=== PATIENT | male | born 2000 | race Caucasian/White ===

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

== ENCOUNTER 2022-09-27 21:07 | Emergency (ER) | payer OTHER, BC ==
[2022-09-27 21:49] VITALS: TEMP 98.1
[2022-09-27] MEDS ORDERED: DIPH,PERTUS(ACELL)TETVAC-LF 0.5 ML VIAL IM ONE (22:24)
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
[2022-09-28] MEDS ORDERED: HYDROcodone/APAP 5-325MG 1 EACH TAB PO STA (00:39)
[2022-09-28] MEDS ORDERED: ACET/COD 300 MG/30 MG STARTER PACK 6 TAB BTL PO STA (00:40)
[2022-09-28 01:06] VITALS: BP 130/71; PULSE 56; RESP 16
== END 2022-09-28 01:08 | disposition home or self-care (01) ==
LOC: EC 21:07
DX: S80.02XA Contusion of left knee, initial encounter (principal); S00.83XA Contusion of other part of head, initial encounter; Z86.59 Personal history of other mental and behavioral disorders; V89.2XXA Person injured in unspecified motor-vehicle accident, traffic, initial encounter; Y92.411 Interstate highway as the place of occurrence of the external cause
CPT/HCPCS: 70450; 70486; 71045; 72125; 99284

== ENCOUNTER 2024-03-01 10:31 | Observation (INO) | payer BC ==
--- NOTE | 2024-03-01 11:40 | ED ---
Abdominal Pain HPI - General Source: patient, RN notes reviewed Mode of arrival: ambulatory Limitations: no limitations - History of Present Illness MD Complaint: abdominal pain <Wiley Miller - Last Filed: 03/01/24 11:38> - General Source: patient, RN notes reviewed, old records reviewed <Kartik Cruz - Last Filed: 03/01/24 16:01> - General Chief Complaint: Abdominal Pain Stated Complaint: ABD PAIN Time Seen by Provider: 03/01/24 10:45 - History of Present Illness Initial Comments: Quick note: This is a 23-year-old male sent by to rule out appendicitis presenting with RLQ abdominal pain. Patient states pain is intermittent with associated nausea/vomiting/diarrhea. Denies radiating or migrating pain. Endorses relief when supine and burping and worsened when laying on affected side. Endorses decreased oral intake due to nausea and subjective fever. Endorses use of omeprazole with minimal relief. (Wiley Miller) Patient is a 23-year-old male who presents emergency department from urgent care to rule out appendicitis. Complaining of right lower quadrant abdominal pain with persistent nausea and vomiting and some mild diarrhea since Wednesday. Is currently Wednesday. Presented to urgent care originally however they sent him here for CT imaging. Patient denies any other abdominal pain. No history of abdominal surgeries. No other significant complaints at this time. Denies fevers. Denies urinary complaints. States pain does not radiate. Presents for further evaluation. Originally seen as a quick note. I evaluated patient when he is placed in room 11. (Kartik Cruz) - Related Data Home Medications Medication Instructions Recorded Confirmed No Known Home Medications 03/01/24 03/01/24 Allergies Allergy/AdvReac Type Severity Reaction Status Date / Time No Known Allergies Allergy Verified 03/01/24 13:56 Review of Systems ROS Other: All systems not noted in ROS Statement are negative. <Wiley Miller - Last Filed: 03/01/24 11:38> ROS Other: All systems not noted in ROS Statement are negative. <Kartik Cruz - Last Filed: 03/01/24 16:01> ROS Statement: Those systems with pertinent positive or pertinent negative responses have been documented in the HPI. Review of Systems: CONST: Denies fever EYES: Denies blurry vision ENT: Denies nasal congestion C/V: Denies Chest pain RESP: Denies shortness of breath GI: Endorses abdominal pain : Denies dysuria SKIN: Denies rash. MSK: Denies joint pain. NEURO: Denies headache (Kartik Cruz) Past Medical History Past Medical History: No Reported History History of Any Multi-Drug Resistant Organisms: None Reported Past Surgical History: No Surgical Hx Reported Past Psychological History: ADD/ADHD Smoking Status: Never smoker Past Alcohol Use History: None Reported Past Drug Use History: Marijuana <Wiley Miller - Last Filed: 03/01/24 11:38> General Exam Limitations: no limitations <Wiley Miller - Last Filed: 03/01/24 11:38> <Kartik Cruz - Last Filed: 03/01/24 16:01> - General Exam Comments Initial Comments: Visual Physical Exam Vital signs reviewed General: Well-appearing, nontoxic, no acute distress. Head: Normocephalic, atraumatic Eyes: PERRLA, EOMI ENT: Airway patent Chest: Nonlabored breathing Skin: No visual rash, normal skin tone Neuro: Alert and oriented 3 Musculoskeletal: No gross abnormalities (Wiley Miller) General: Appears in mild to moderate distress secondary to abdominal pain. HEAD: Normal with no signs of head trauma. EYES: EOMI ENT: Hearing grossly intact, normal oropharynx. RESPIRATORY: Clear breath sounds bilaterally. No wheezes, rales, or rhonchi. C/V: Regular rate and rhythm. S1 and S2 auscultated. Peripheral pulses 2+ intact throughout. ABD: Soft, nondistended. Tender to palpation in the right lower quadrant. No guarding or rebound tenderness. No peritoneal signs. EXT: No obvious deformity SKIN: No rashes or lesions observed on exposed skin. NEURO: Alert and oriented x 4. (Kartik Cruz) Course Vital Signs 03/01/24 03/01/24 03/01/24 10:56 12:48 14:00 Temperature 98.0 F 98.1 F 98.3 F Pulse Rate 63 62 61 Respiratory 18 19 16 Rate Blood Pressure 118/78 136/52 135/65 O2 Sat by Pulse 98 98 97 Oximetry 03/01/24 14:41 Temperature Pulse Rate 65 Respiratory 18 Rate Blood Pressure 131/69 O2 Sat by Pulse 97 Oximetry Medical Decision Making <Wiley Miller - Last Filed: 03/01/24 11:38> - Lab Data Result diagrams: 03/01/24 11:50 03/01/24 11:50 <Kartik Cruz - Last Filed: 03/01/24 16:01> - Medical Decision Making I completed the quick note portion of this chart signed DEION Hurley (Wiley Miller) Was pt. sent in by a medical professional or institution ([facility] [place], [facility]ESS REGISTRAR, urgent care, hospital, or fpc...) When possible be specific @ -Sent by urgent care for evaluation for appendicitis. Did you speak to anyone other than the patient for history (EMS, parent, family, police, friend...)? What history was obtained from this source @ -No Did you review nursing and triage notes (agree or disagree)? Why? @ -I reviewed and agree with nursing and triage notes Were old charts reviewed (outside hosp., previous admission, EMS record, old EKG, old radiological studies, urgent care reports/EKG's, fpc records)? Report findings @ -No old charts were reviewed Differential Diagnosis (chest pain, altered mental status, abdominal pain women, abdominal pain men, vaginal bleeding, weakness, fever, dyspnea, syncope, headache, dizziness, GI bleed, back pain, seizure, CVA, palpatations, mental health, musculoskeletal)? @ -Differential Abdominal Pain Men: Appendicitis, cholecystitis, diverticulosis, ischemic bowel, pancreatitis, hepatitis, UTI, gastroenteritis, AAA, incarcerated hernia, bowel obstruction, constipation, inflammatory bowel, hepatitis, peptic ulcer disease, splenic infarction, perforated viscus, testicular torsion, this is not meant to be an all-inclusive list EKG interpreted by me (3pts min.). @ -None done X-rays interpreted by me (1pt min.). @ -None done CT interpreted by me (1pt min.). @ -CT abdomen pelvis reveals uncomplicated appendicitis. U/S interpreted by me (1pt. min.). @ -None done What testing was considered but not performed or refused? (CT, X-rays, U/S, labs)? Why? @ -None What meds were considered but not given or refused? Why? @ -None Did you discuss the management of the patient with other professionals (professionals i.e. [facility] [place], ACCESS REGISTRAR, lab, RT, psych nurse, social worker school, silver miner, teacher, international first officer, caser)? Give summary @ -Discussed with on-call surgeon, Dr. Aviles who is in agreement with plan for initiating antibiotics, IV fluids, making the patient n.p.o. Patient will be taken to the OR later this afternoon. Was smoking cessation discussed for >3mins.? @ -No Was critical care preformed (if so, how long)? @ -No Were there social determinants of health that impacted care today? How? (Homelessness, low income, unemployed, alcoholism, drug addiction, transportation, low edu. Level, literacy, decrease access to med. care, usp, rehab)? @ -No Was there de-escalation of care discussed even if they declined (Discuss DNR or withdrawal of care, Hospice)? DNR status @ -No What co-morbidities impacted this encounter? (DM, HTN, Smoking, COPD, CAD, Cancer, CVA, ARF, Chemo, Hep., AIDS, mental health diagnosis, sleep apnea, morbid obesity)? @ -None Was patient admitted / discharged? Hospital course, mention meds given and route, prescriptions, significant lab abnormalities, going to OR and other pertinent info. @ -Patient presents to the [facility] emergency department for rule out appendicitis. Workup started as a quick note. Patient administered IV fluids, analgesia medications, antiemetics, Protonix. Vitals are within acceptable limits. Laboratory studies returned remarkable for leukocytosis of 16.8. Lactic acid within normal limits. Remainder the labs relatively unremarkable. 4+ ketones i n the urine, signifying significant dehydration. CT imaging week feels acute appendicitis. Patient will be started on IV Zosyn. Made NPO. Will continue with IV fluids. I updated the patient. He will be admitted to surgery. I spoke with on-call surgeon, Dr. Ramírez who accepted the admission and will arrange for OR time this afternoon. Undiagnosed new problem with uncertain prognosis? @ -No Drug Therapy requiring intensive monitoring for toxicity (Heparin, Nitro, Insulin, Cardizem)? @ -No Were any procedures done? @ -No Diagnosis/symptom? @ -Appendicitis Acute, or Chronic, or Acute on Chronic? @ -Acute Uncomplicated (without systemic symptoms) or Complicated (systemic symptoms)? @ -Complicated Side effects of treatment? @ -No Exacerbation, Progression, or Severe Exacerbation? @ -No Poses a threat to life or bodily function? How? (Chest pain, [place], [place], pneumonia, PE, COPD, DKA, ARF, appy, cholecystitis, CVA, Diverticulitis, Homicidal, Suicidal, threat to staff... and all critical care pts) @ -Yes (Kartik Cruz) - Lab Data Lab Results 03/01/24 03/01/24 03/01/24 Range/Units 11:50 11:50 11:50 WBC 16.8 H (3.8-10.6) k/uL RBC 5.50 (4.30-5.90) m/uL Hgb 16.2 (13.0-17.5) gm/dL Hct 47.0 (39.0-53.0) % MCV 85.3 (80.0-100.0) fL MCH 29.5 (25.0-35.0) pg MCHC 34.6 (31.0-37.0) g/dL RDW 12.5 (11.5-15.5) % Plt Count 294 (150-450) k/uL MPV 8.2 Neutrophils % 86 % Lymphocytes % 7 % Monocytes % 5 % Eosinophils % 1 % Basophils % 0 % Neutrophils # 14.5 H (1.3-7.7) k/uL Lymphocytes # 1.2 (1.0-4.8) k/uL Monocytes # 0.9 (0-1.0) k/uL Eosinophils # 0.1 (0-0.7) k/uL Basophils # 0.0 (0-0.2) k/uL Sodium 141 (137-145) mmol/L Potassium 3.8 (3.5-5.1) mmol/L Chloride 98 (98-107) mmol/L Carbon Dioxide 29 (22-30) mmol/L Anion Gap 14 mmol/L BUN 14 (9-20) mg/dL Creatinine 0.91 (0.66-1.25) mg/dL Est GFR (CKD-EPI)AfAm >90 (>60 ml/min/1.73 sqM) Est GFR (CKD-EPI)NonAf >90 (>60 ml/min/1.73 sqM) Glucose 102 H (74-99) mg/dL Plasma Lactic Acid Pee (0.7-2.0) mmol/L Calcium 10.6 H (8.4-10.2) mg/dL Total Bilirubin 4.2 H (0.2-1.3) mg/dL AST 16 L (17-59) U/L ALT 11 (4-49) U/L Alkaline Phosphatase 85 (38-126) U/L Total Protein 9.3 H (6.3-8.2) g/dL Albumin 5.7 H (3.5-5.0) g/dL Amylase 48 (30-110) U/L Lipase 195 (23-300) U/L Urine Color Yellow Urine Appearance Cloudy (Clear) Urine pH 6.0 (5.0-8.0) Ur Specific [place] 1.046 H (1.001-1.035) Urine Protein 1+ H (Negative) Urine Glucose (UA) Negative (Negative) Urine Ketones 4+ H (Negative) Urine Blood Negative (Negative) Urine Nitrite Negative (Negative) Urine Bilirubin 1+ H (Negative) Urine Urobilinogen 4.0 (<2.0) mg/dL Ur Leukocyte Esterase Negative (Negative) Urine RBC <1 (0-5) /hpf Urine WBC 3 (0-5) /hpf Ur Squamous Epith Cells 2 (0-4) /hpf Urine Mucus Many H (None) /hpf 03/01/24 Range/Units 11:50 WBC (3.8-10.6) k/uL RBC (4.30-5.90) m/uL Hgb (13.0-17.5) gm/dL Hct (39.0-53.0) % MCV (80.0-100.0) fL MCH (25.0-35.0) pg MCHC (31.0-37.0) g/dL RDW (11.5-15.5) % Plt Count (150-450) k/uL MPV Neutrophils % % Lymphocytes % % Monocytes % % Eosinophils % % Basophils % % Neutrophils # (1.3-7.7) k/uL Lymphocytes # (1.0-4.8) k/uL Monocytes # (0-1.0) k/uL Eosinophils # (0-0.7) k/uL Basophils # (0-0.2) k/uL Sodium (137-145) mmol/L Potassium (3.5-5.1) mmol/L Chloride (98-107) mmol/L Carbon Dioxide (22-30) mmol/L Anion Gap mmol/L BUN (9-20) mg/dL Creatinine (0.66-1.25) mg/dL Est GFR (CKD-EPI)AfAm (>60 ml/min/1.73 sqM) Est GFR (CKD-EPI)NonAf (>60 ml/min/1.73 sqM) Glucose (74-99) mg/dL Plasma Lactic Acid Pee 1.3 (0.7-2.0) mmol/L Calcium (8.4-10.2) mg/dL Total Bilirubin (0.2-1.3) mg/dL AST (17-59) U/L ALT (4-49) U/L Alkaline Phosphatase (38-126) U/L Total Protein (6.3-8.2) g/dL Albumin (3.5-5.0) g/dL Amylase (30-110) U/L Lipase (23-300) U/L Urine Color Urine Appearance (Clear) Urine pH (5.0-8.0) Ur Specific [place] (1.001-1.035) Urine Protein (Negative) Urine Glucose (UA) (Negative) Urine Ketones (Negative) Urine Blood (Negative) Urine Nitrite (Negative) Urine Bilirubin (Negative) Urine Urobilinogen (<2.0) mg/dL Ur Leukocyte Esterase (Negative) Urine RBC (0-5) /hpf Urine WBC (0-5) /hpf Ur Squamous Epith Cells (0-4) /hpf Urine Mucus (None) /hpf Disposition <Wiley Miller - Last Filed: 03/01/24 11:38> Time of Disposition: 13:20 <Kartik Cruz - Last Filed: 03/01/24 16:01> Clinical Impression: Acute appendicitis Disposition: ADMITTED IP TO THIS HOSP Condition: Stable
[2024-03-01 12:01] LABS: Basophils % (A) 0 %; Eosinophils # (A) 0.1 k/uL (0-0.7); Eosinophils % (A) 1 %; HGB 16.2 gm/dL (13.0-17.5); Lymphocytes # (A) 1.2 k/uL (1.0-4.8); Lymphocytes % (A) 7 %; MCH 29.5 pg (25.0-35.0); MCHC 34.6 g/dL (31.0-37.0); MCV 85.3 fL (80.0-100.0); Mean Platelet Volume 8.2; Monocytes # (A) 0.9 k/uL (0-1.0); Monocytes % (A) 5 %; Neutrophils # (A) 14.5 k/uL (1.3-7.7); Neutrophils % (A) 86 %; Platelet Count 294 k/uL (150-450); RDW 12.5 % (11.5-15.5); WBC 16.8 k/uL (3.8-10.6)
[2024-03-01 12:17] LABS: ALT 11 U/L (4-49); AST 16 U/L (17-59); African American GFR (CKD) >90 (>60 ml/min/1.73 sqM); Albumin 5.7 g/dL (3.5-5.0); Alkaline Phosphatase 85 U/L (38-126); Amylase 48 U/L (30-110); Anion Gap 14 mmol/L; Blood Urea Nitrogen 14 mg/dL (9-20); Calcium 10.6 mg/dL (8.4-10.2); Carbon Dioxide 29 mmol/L (22-30); Chloride 98 mmol/L (98-107); Glucose 102 mg/dL (74-99); Lipase 195 U/L (23-300); Non-African American GFR(CKD) >90 (>60 ml/min/1.73 sqM); Potassium 3.8 mmol/L (3.5-5.1); Sodium 141 mmol/L (137-145); Total Bilirubin 4.2 mg/dL (0.2-1.3); Total Protein 9.3 g/dL (6.3-8.2)
[2024-03-01] MEDS: MAG HYDROX/AL HYDROX/SIMETH 30 ML, HYOSCYAMINE ELIXIR 10 ML, LIDOCAINE VISCOUS 2% 10 ML PO STA (12:22)
[2024-03-01] MEDS: ONDANSETRON 4 MG/2 ML VIAL IVP STA (12:23)
[2024-03-01] MEDS: PANTOPRAZOLE 40 MG/10 ML VIAL IVP STA (12:23)
[2024-03-01] MEDS: SODIUM CHLORIDE 0.9% 1,000 ML IV STA (12:23)
[2024-03-01] MEDS: KETOROLAC 15 MG/ML 1 ML VIAL IVP STA (12:31)
[2024-03-01 12:32] LABS: Appearance,Urine Cloudy (Clear); Bilirubin,Urine 1+ (Negative); Blood,Urine Negative (Negative); Color,Urine Yellow; Glucose,Urine (UA) Negative (Negative); Ketones,Urine 4+ (Negative); Leukocyte Esterase,Urine Negative (Negative); Mucus,Urine Many /hpf; Nitrite,Urine Negative (Negative); Protein,Urine 1+ (Negative); RBC,Urine <1 /hpf (0-5); Specific Gravity,Urine 1.046 (1.001-1.035); Squamous Epithelial Cell,Urine 2 /hpf (0-4); WBC,Urine 3 /hpf (0-5)
--- NOTE | 2024-03-01 13:06 | CT ---
EXAMINATION TYPE: CT abdomen pelvis w con DATE OF EXAM: 03/01/2024 12:17 PM COMPARISON: None. CLINICAL INDICATION: Male, 23 years old with history of RLQ pain, RLQ PAIN TECHNIQUE: Axial images were obtained from above the diaphragm to the pubic rami in the axial plane a t 5 mm thick sections. Reconstructed images are reviewed on the computer in the coronal plane. CONTRAST: 100 mL of Isovue 300. Study performed without Oral Contrast DLP: 713.8 mGycm, Automated exposure control for dose reduction was used. FINDINGS: Limited CT sections are obtained the lung bases. The lung bases are clear. CT ABDOMEN: Liver: Normal Spleen: Normal Pancreas: Normal Adrenal glands: The adrenal glands are normal. Gallbladder: Normal Kidneys: No masses are evident. No hydronephrosis is present. No cysts are present. Delayed images were obtained through the kidneys, which remain unremarkable. Aorta: Normal Inferior vena cava: Normal. CT PELVIS: Loops of bowel within the abdomen and pelvis are normal. Few diverticuli within the sigmoid colon. No adjacent inflammatory changes to suggest acute diverticulitis. This study is without oral contrast l imiting bowel evaluation. Appendix: The appendix measures 0.9 cm transverse which is slightly enlarged. Normal less than 0.7 cm . Some mild enhancement may be present. Clinical correlation for early acute appendicitis is recommen ded. Inflammatory changes are not identified. No abscess formation or free air is evident. Urinary bladder: Decompressed limiting evaluation Genitourinary structures: Prostate appears normal Osseous structures: No suspicious lytic or sclerotic lesions. IMPRESSION: 1. Early acute appendicitis may be present with slight prominence of the appendix. Inflammatory jordan ges, abscess formation or free air is not identified. 2. A few diverticuli are present without acute diverticulitis. 3. Abdomen pelvis CT otherwise appears unremarkable [facility], Workstation: [facility], 03/01/2024 1:03 PM
[2024-03-01] MEDS ORDERED: MORPHINE SULFATE 4 MG/ML SYRINGE IV PRN (13:26)
[2024-03-01] MEDS ORDERED: ONDANSETRON 4 MG/2 ML VIAL IVP PRN ×2 (13:26→17:29)
[2024-03-01] MEDS ORDERED: NALOXONE 0.4 MG/ML 1 ML VIAL IV PRN (13:26)
[2024-03-01] MEDS: LACTATED RINGERS 1,000 ML IV ONE ×4 (13:34→17:44)
[2024-03-01] MEDS: PIPERACILLIN-TAZOBACTAM 3.375 GM in SODIUM CHLORIDE 0.9% 100 ML IVPB STA (13:56)
[2024-03-01] MEDS: DEXAMETHASONE SOD PHOSPHATE 4 MG/ML 1 ML VIAL IVP STA (15:31)
[2024-03-01] MEDS: LIDOCAINE 1%-EPI 1:100,000 20 ML VIAL SQ ONE ×2 (15:32→17:15)
--- NOTE | 2024-03-01 15:38 | P.GSHP ---
History of Present Illness H&P Date: 03/01/24 Chief Complaint: Right lower quadrant pain Is a 23-year-old male who has 24-hour history of right lower quadrant pain. Patient was worked up in emergency room. His CAT scan is suggestive of early appendicitis. Patient has leukocytosis. Past Medical History Past Medical History: No Reported History History of Any Multi-Drug Resistant Organisms: None Reported Past Surgical History: No Surgical Hx Reported Past Psychological History: ADD/ADHD Smoking Status: Never smoker Past Alcohol Use History: None Reported Past Drug Use History: Marijuana Medications and Allergies Home Medications Medication Instructions Recorded Confirmed Type No Known Home Medications 03/01/24 03/01/24 History Allergies Allergy/AdvReac Type Severity Reaction Status Date / Time No Known Allergies Allergy Verified 03/01/24 13:56 Surgical - Exam Vital Signs Temp Pulse Resp BP Pulse Ox 98.0 F 63 18 118/78 98 03/01/24 10:56 03/01/24 10:56 03/01/24 10:56 03/01/24 10:56 03/01/24 10:56 - General well developed, well nourished, no distress - Eyes PERRL - ENT normal pinna - Neck no masses - Respiratory normal expansion - Cardiovascular Rhythm: regular - Abdomen Abdomen: soft, non tender Results - Labs 03/01/24 11:50 03/01/24 11:50 Abnormal Lab Results - Last 24 Hours (Table) 03/01/24 03/01/24 03/01/24 Range/Units 11:50 11:50 11:50 WBC 16.8 H (3.8-10.6) k/uL Neutrophils # 14.5 H (1.3-7.7) k/uL Glucose 102 H (74-99) mg/dL Calcium 10.6 H (8.4-10.2) mg/dL Total Bilirubin 4.2 H (0.2-1.3) mg/dL AST 16 L (17-59) U/L Total Protein 9.3 H (6.3-8.2) g/dL Albumin 5.7 H (3.5-5.0) g/dL Ur Specific [place] 1.046 H (1.001-1.035) Urine Protein 1+ H (Negative) Urine Ketones 4+ H (Negative) Urine Bilirubin 1+ H (Negative) Urine Mucus Many H (None) /hpf Diabetes panel 03/01/24 Range/Units 11:50 Sodium 141 (137-145) mmol/L Potassium 3.8 (3.5-5.1) mmol/L Chloride 98 (98-107) mmol/L Carbon Dioxide 29 (22-30) mmol/L BUN 14 (9-20) mg/dL Creatinine 0.91 (0.66-1.25) mg/dL Glucose 102 H (74-99) mg/dL Calcium 10.6 H (8.4-10.2) mg/dL AST 16 L (17-59) U/L ALT 11 (4-49) U/L Alkaline Phosphatase 85 (38-126) U/L Total Protein 9.3 H (6.3-8.2) g/dL Albumin 5.7 H (3.5-5.0) g/dL Calcium panel 03/01/24 Range/Units 11:50 Calcium 10.6 H (8.4-10.2) mg/dL Albumin 5.7 H (3.5-5.0) g/dL Pituitary panel 03/01/24 Range/Units 11:50 Sodium 141 (137-145) mmol/L Potassium 3.8 (3.5-5.1) mmol/L Chloride 98 (98-107) mmol/L Carbon Dioxide 29 (22-30) mmol/L BUN 14 (9-20) mg/dL Creatinine 0.91 (0.66-1.25) mg/dL Glucose 102 H (74-99) mg/dL Calcium 10.6 H (8.4-10.2) mg/dL Adrenal panel 03/01/24 Range/Units 11:50 Sodium 141 (137-145) mmol/L Potassium 3.8 (3.5-5.1) mmol/L Chloride 98 (98-107) mmol/L Carbon Dioxide 29 (22-30) mmol/L BUN 14 (9-20) mg/dL Creatinine 0.91 (0.66-1.25) mg/dL Glucose 102 H (74-99) mg/dL Calcium 10.6 H (8.4-10.2) mg/dL Total Bilirubin 4.2 H (0.2-1.3) mg/dL AST 16 L (17-59) U/L ALT 11 (4-49) U/L Alkaline Phosphatase 85 (38-126) U/L Total Protein 9.3 H (6.3-8.2) g/dL Albumin 5.7 H (3.5-5.0) g/dL Assessment and Plan Assessment: Right lower quadrant pain, appendicitis. Will perform laparoscopic appendectomy.
[2024-03-01] MEDS ORDERED: PIPERACILLIN-TAZOBACTAM 3.375 GM in SODIUM CHLORIDE 0.9% 100 ML IVPB SCH (16:00)
[2024-03-01] MEDS: SODIUM CHLORIDE 0.9% 50 ML with ceFAZolin 2,000 MG IV ONE (17:00)
[2024-03-01] MEDS ORDERED: PROPOFOL 10 MG/ML 20 ML VIAL IV ONE (17:00)
[2024-03-01] MEDS ORDERED: ROCURONIUM 10 MG/ML (5 ML VIAL) IV ONE (17:00)
[2024-03-01] MEDS ORDERED: SUGAMMADEX SODIUM 100 MG/ML SYR IV ONE (17:00)
[2024-03-01] MEDS ORDERED: MIDAZOLAM 2 MG/2 ML VIAL ONE (17:00)
[2024-03-01] MEDS ORDERED: ceFAZolin 1 GM/50 ML BAG (PMX) ONE (17:00)
[2024-03-01] MEDS ORDERED: fentaNYL (PF) 50 MCG/ML 2 ML AMP ONE (17:00)
[2024-03-01] MEDS ORDERED: LIDOCAINE 1% INJ 10MG/ML (20 ML MDV) ONE (17:00)
--- NOTE | 2024-03-01 17:28 | P.OP ---
Date of Procedure: 03/01/24 Preoperative Diagnosis: Appendicitis Postoperative Diagnosis: Appendicitis Procedure(s) Performed: Laparoscopic appendectomy Anesthesia: NIKA Surgeon: Dirk Ramírez Estimated Blood Loss (ml): 5 Pathology: other (Appendix) Condition: stable Disposition: PACU Description of Procedure: Moore the patient's placed on the operating table in the supine position. The patient received general anesthesia. The abdomen was prepped and draped in the usual sterile fashion. The skin was anesthetized 1% local Xylocaine at the trocar sites. Using an 11 blade the skin was incised at the umbilicus. The umbilicus was grasped with a [place] clamp and then a Veress needle was placed into the peritoneal cavity. Position of the Veress needle was confirmed with positive drop test. After adequate insufflation a 5 mm trocar was placed into the peritoneal cavity. The abdomen was further insufflated. And then the laparoscope was placed in the peritoneal cavity. Next a 5 mm trocar was placed in the midline suprapubic position. And then a 10 mm trocar was placed in the midline epigastric position. The patient was rotated with the right side up and in Trendelenburg. The appendix was visualized. The appendix appeared to be inflamed. The appendix was grasped and then using the Harmonic scissors the mesoappendix was divided. A PDS Endoloop was then placed around the base of the appendix. And then the appendix was divided using Harmonic scissors. The appendix was placed into an Endo Catch and brought out through the 10 mm trocar site. The abdomen was irrigated. There is no bleeding seen. The trochars withdrawn. The skin was closed interrupted 3-0 Monocryl suture. Dermabond dressing was applied. Patient was sent to recovery room in stable condition.
[2024-03-01] MEDS ORDERED: HYDROmorphone 1 MG/ML 1 ML SYRINGE IVP PRN (17:29)
[2024-03-01] MEDS: PIPERACILLIN-TAZOBACTAM 3.375 GM in SODIUM CHLORIDE 0.9% 100 ML IVPB SCH (22:37)
[2024-03-02] MEDS: HYDROcodone/APAP 7.5-325MG 1 EACH TAB PO PRN (00:33)
[2024-03-02 08:04] VITALS: BP 112/60; PULSE 51; RESP 16; TEMP 98.4
[2024-03-02] MEDS: ENOXAPARIN 40 MG/0.4 ML SYRINGE SQ SCH (08:25)
[2024-03-02 09:10] LABS: Basophils # (A) 0.01 X 10*3/uL (0.00-0.10); Basophils % (A) 0.1 %; Eosinophils # (A) 0 X 10*3/uL (0.04-0.35); Eosinophils % (A) 0 %; HCT 41.3 % (39.6-50.0); Lymphocytes # (A) 1.39 X 10*3/uL (0.90-5.00); Lymphocytes % (A) 11.8 %; MCH 29.2 pg (27.0-32.0); MCHC 33.9 g/dL (32.0-37.0); Mean Platelet Volume 11.6 FL (9.5-12.2); Monocytes # (A) 1.01 X 10*3/uL (0.20-1.00); Monocytes % (A) 8.6 %; NRBC Per 100 WBC 0 X 10*3/uL (0.00-0.01); Neutrophils # (A) 9.34 X 10*3/uL (1.80-7.70); Neutrophils % (A) 79.2 %; Platelet Count 271 X 10*3/uL (140-440); RDW 12.2 % (11.5-14.5); WBC 11.79 X 10*3/uL (4.50-10.00)
[2024-03-02 09:11] LABS: ALT 7 U/L (10-49); AST 13 U/L (14-35); Albumin 4.3 g/dL (3.8-4.9); Albumin/Globulin Ratio 1.95 Ratio (1.60-3.17); Alkaline Phosphatase 75 U/L (41-126); BUN/Creat Ratio 9.22 Ratio (12.00-20.00); Blood Urea Nitrogen 8.3 mg/dL (9.0-27.0); Calcium 9.2 mg/dL (8.7-10.3); Carbon Dioxide 24.3 mmol/L (21.6-31.8); Chloride 102 mmol/L (96-109); Globulin 2.2 g/dL (1.6-3.3); Glucose 103 mg/dL (70-110); Potassium 3.7 mmol/L (3.5-5.5); Sodium 139 mmol/L (135-145); Total Bilirubin 2.2 mg/dL (0.3-1.2); Total Protein 6.5 g/dL (6.2-8.2)
--- NOTE | 2024-03-02 11:56 | P.DS ---
Providers Date of admission: 03/01/24 13:28 Expected date of discharge: 03/02/24 Attending physician: Dirk aRmírez Primary care physician: Stated None Hospital Course: Discharge diagnosis 1. Appendicitis Hospital course This is a 23-year-old male who presented with right lower quadrant pain. CAT scan had suggested evidence of early appendicitis. Patient is status post laparoscopic appendectomy. His pain is controlled. He is tolerating diet. He has been up and ambulating. He is having flatus. He is afebrile. He is stable for discharge. Please refer to chart for any further details. Physician [place] note has been reviewed by physician. Signing provider agrees with the documented findings, assessment, and plan of care. Patient Condition at Discharge: Stable Plan - Discharge Summary New Discharge Prescriptions: New metroNIDAZOLE [Flagyl] 500 mg PO TID 10 Days #30 tab Levofloxacin [Levaquin] 500 mg PO DAILY 10 Days #10 tab Ibuprofen [Motrin] 600 mg PO Q8HR PRN #30 tab PRN Reason: Pain HYDROcodone/APAP 5-325MG [David 5-325] 1 tab PO Q6HR PRN 3 Days #12 tab PRN Reason: Pain Discharge Medication List HYDROcodone/APAP 5-325MG [David 5-325] 1 tab PO Q6HR PRN 3 Days #12 tab 03/02/24 [Rx] Ibuprofen [Motrin] 600 mg PO Q8HR PRN #30 tab 03/02/24 [Rx] Levofloxacin [Levaquin] 500 mg PO DAILY 10 Days #10 tab 03/02/24 [Rx] metroNIDAZOLE [Flagyl] 500 mg PO TID 10 Days #30 tab 03/02/24 [Rx] Follow up Appointment(s)/Referral(s): None,Stated [Primary Care Provider] - 1-2 days Dirk Ramírez MD [STAFF PHYSICIAN] - 03/16/24 1:10 pm Activity/Diet/Wound Care/Special Instructions: No driving while taking David No lifting over 10 pounds Shower daily. No soaking or tub baths for 2 weeks Very light activity until you are reevaluated at your follow up appointment with your surgeon Discharge Disposition: HOME SELF-CARE
== END 2024-03-02 10:27 | disposition home or self-care (01) ==
LOC: EC 10:31 → 4SSUR 13:28
PROVIDERS: ADMIT Surgery; ATTEND Surgery
DX: K35.80 Unspecified acute appendicitis (principal); E86.0 Dehydration
CPT/HCPCS: 96374; 96375; 99285; 36415; 88304; 80053 ×2; 82150; 83605; 83690; 85025 ×2; 81001; 87040; 74177; 44970; G0378 ×2; J2543 ×2; J1100; J2405; J0690; J1885; Q9967; J2470